=== PATIENT | female | born 1960 | race Two or more races ===

== ENCOUNTER 2018-10-06 08:54 | Day surgery (SDC) | payer OTHER ==
[~2018-10-06 08:54] MED LIST: LEVOTHYROXINE PO
== END 2018-10-06 15:35 | disposition home or self-care (01) ==
LOC: CIR.AMB 08:54
DX: N85.01 Benign endometrial hyperplasia (principal)

== ENCOUNTER 2018-12-22 07:35 | Day surgery (SDC) | payer OTHER | END 2018-12-22 16:20 | disposition home or self-care (01) | LOC: CIR.AMB 07:35 | DX: N87.1 Moderate cervical dysplasia (principal) ==